=== PATIENT | female | born 1930 | race Caucasian/White ===

== ENCOUNTER → 2016-12-05 | Outpatient (CLI) | payer MEDICARE ==
--- NOTE | 2016-12-05 21:34 | US ---
EXAMINATION TYPE: US carotid duplex BILAT DATE OF EXAM: 12/05/2016 COMPARISON: NONE CLINICAL HISTORY: I34.0 Nonrheumatic mitral regurgitation. Stenosis per order. EXAM MEASUREMENTS: RIGHT: Peak Systolic Velocity (PSV) cm/sec ----- Right CCA: 81.9 ----- Right ICA: 86.5 ----- Right ECA: 117.7 ICA/CCA ratio: 1.1 RIGHT: End Diastole cm/sec ----- Right CCA: 11.1 ----- Right ICA: 16.8 ----- Right ECA: 0.0 LEFT: Peak Systolic Velocity (PSV) cm/sec ----- Left CCA: 81.1 ----- Left ICA: 75.6 ----- Left ECA: 104.2 ICA/CCA ratio: 0.9 LEFT: End Diastole cm/sec ----- Left CCA: 13.4 ----- Left ICA: 14.3 ----- Left ECA: 0.0 VERTEBRALS (direction of flow): Right Vertebral: Antegrade Left Vertebral: Antegrade Bilateral intimal thickening, minimal plaque bilateral bulb, no elevated velocities, no significant s tenosis. Grayscale images show focal moderate shadowing eccentric hyperechoic plaque at right carotid bulb. Th ere is minimal also moderate to severe peripheral plaque at left carotid bulb seen on image 36. Veloc ity measurements and ratios in visualized portion of both internal carotid arteries is within normal limits. IMPRESSION: Fairly moderate atherosclerotic change bilaterally without hemodynamically significant s tenosis clearly seen in either internal carotid artery . Criteria for Assigning % of Stenosis / Diameter reduction (Estimation based on the indirect measurements of the internal carotid artery velocities (ICA PSV). 1. Normal (no stenosis)=ICA PSV < 125 cm/s: ratio < 2.0: ICA EDV<40 cm/s. 2. Less than 50% stenosis=ICA PSV < 125 cm/s: ratio < 2.0: ICA EDV<40 cm/s. 3. 50 to 69% stenosis=ICA PSV of 125 to 230 cm/s: ration 2.0 ? 4.0: ICA EDV 40-100 cm/s. 4. Greater than 70% stenosis to near occlusion= ICA PSV > 230 cm/s: ratio > 4.0: ICA EDV > 100 cm/s. 5. Near occlusion= ICA PSV velocities may be low or undetectable: variable ratio and ICA EDV. 6. Total occlusion=unable to detect flow.
--- NOTE | 2016-12-06 10:38 | ECHOF ---
Referral Reason:I34.0 Nonrheumatic mitral regurgitation MEASUREMENTS -------- HEIGHT: 160.0 cm WEIGHT: 48.5 kg BP: 181/74 RVIDd: 1.4 cm (< 3.3) IVSd: 0.9 cm (0.6 - 1.1) LVIDd: 3.4 cm (3.9 - 5.3) LVPWd: 0.9 cm (0.6 - 1.1) IVSs: 1.2 cm LVIDs: 1.9 cm LVPWs: 1.2 cm LAESV Index (A-L): 10.33 ml/m Ao Diam: 3.1 cm (2.0 - 3.7) AV Cusp: 1.1 cm (1.5 - 2.6) LA Diam: 2.6 cm (2.7 - 3.8) MV EXCURSION: 12.755 mm (> 18.000) MV EF SLOPE: 62 mm/s (70 - 150) EPSS: 1.2 cm MV E Juan Luis: 1.00 m/s MV DecT: 312 ms MV A Juan Luis: 1.16 m/s MV E/A Ratio: 0.87 RAP: 5.00 mmHg RVSP: 32.03 mmHg FINDINGS -------- Sinus rhythm. This was a technically adequate study. The left ventricular size is normal. Left ventricular wall thickness is normal. Overall left ventricular systolic function is normal with, an EF between 55 - 60 %. The right ventricle is normal in size and function. Normal LA size by volume 22+/-6 ml/m2. The right atrium is normal in size. There is mild aortic valve sclerosis. There is mild aortic regurgitation. The mitral valve leaflets are mild to moderately thickened. Mild mitral annular calcification present. Mild mitral regurgitation is present. Trace tricuspid regurgitation present. There is no evidence of pulmonary hypertension. The right ventricular systolic pressure, as measured by Doppler, is 32.03mmHg. The pulmonic valve was not well visualized. There is no pulmonic regurgitation present. The aortic root size is normal. Normal inferior vena cava with normal inspiratory collapse consistent with estimated right atrial pressure of 5 mmHg. There is a small pericardial effusion is located near the right ventricle. Moderate Pleural Effusion. CONCLUSIONS -------- 1. Sinus rhythm. 2. Trace tricuspid regurgitation present. 3. There is no evidence of pulmonary hypertension. 4. The pulmonic valve was not well visualized. 5. There is no pulmonic regurgitation present. 6. The aortic root size is normal. 7. There is a small pericardial effusion is located near the right ventricle. 8. Moderate Pleural Effusion. 9. This was a technically adequate study. 10. Left ventricular wall thickness is normal. 11. Overall left ventricular systolic function is normal with, an EF between 55 - 60 %. 12. Normal LA size by volume 22+/-6 ml/m2. 13. There is mild aortic valve sclerosis. 14. There is mild aortic regurgitation. 15. The mitral valve leaflets are mild to moderately thickened. 16. Mild mitral regurgitation is present. SHINGLE CUTTER: Hayley Villegas RDCS
== END | disposition home or self-care (01) ==
LOC: RADUSMAIN 15:36
PROVIDERS: ATTEND Internal Medicine
DX: I08.3 Combined rheumatic disorders of mitral, aortic and tricuspid valves (principal); I65.23 Occlusion and stenosis of bilateral carotid arteries; I31.3 Pericardial effusion (noninflammatory)
CPT/HCPCS: 93306; 93880

== ENCOUNTER → 2017-01-02 | Outpatient (CLI) | payer MEDICARE ==
[2017-01-02 15:15] LABS: Blood Urea Nitrogen 16 mg/dL (7-17); Non-African American GFR(MDRD) >60 (>60 ml/min/1.73 sqM)
--- NOTE | 2017-01-02 16:01 | CT ---
EXAMINATION TYPE: CT chest w con DATE OF EXAM: 01/02/2017 COMPARISON: NONE HISTORY: Patient has no complaints at time of service. Abnormal study showing pleural effusion. CT DLP: 147.5 mGycm. Automated Exposure Control for Dose Reduction was Utilized. TECHNIQUE: CT scan of the thorax is performed following with IV Contrast, patient injected with 100 mL of Omnipaque 300. FINDINGS: LUNGS: Pleural parenchymal scarring present of the lung bases. A subsolid spiculated pulmonary nodule measuring 7 mm is seen within the right upper lobe on series 4 image 26 as well as a patchy area of groundglass opacity also measuring 7 mm in the left upper lobe on series 4 image 20. Scattered calcif ied benign granulomas are seen of the right. There is no pleural effusion or pneumothorax seen. The tracheobronchial tree is patent. MEDIASTINUM: There are no greater than 1 cm hilar or mediastinal lymph nodes. Prominent right hilar c onglomeration of lymph nodes measures 0.9 x 0.9 cm. No pericardial effusion is seen. OTHER: There is a singular large arterially enhancing lesion within the right hepatic lobe and segmen t 8 measuring 2.0 x 1.8 cm. Subcentimeter thyroid nodules seen on the left. Note is made of generaliz ed osseous demineralization. Prominent patella is seen in the right upper pole on series 3 image 81. IMPRESSION: 1. No pleural or pericardial effusion. 2. Arterial enhancing hepatic lesion. Although this could represent a flash filling hemangioma, this is atypical for the size of the lesion and other arterial enhancing lesion such as hepatocellular car cinoma are considered. Further characterization with dynamic enhanced CT abdomen or MR abdomen are re commended. 3. Subsolid and groundglass pulmonary nodules for which follow-up CT is recommended in 3-6 months. 4. No evidence of mediastinal adenopathy.
== END | disposition home or self-care (01) ==
LOC: RADCTMAIN 14:31
PROVIDERS: ATTEND Internal Medicine
DX: R91.1 Solitary pulmonary nodule (principal)
CPT/HCPCS: 71260; 82565; 84520

== ENCOUNTER → 2017-01-20 | Outpatient (CLI) | payer MEDICARE ==
--- NOTE | 2017-01-20 09:18 | US ---
EXAMINATION TYPE: US abdomen complete DATE OF EXAM: 01/20/2017 COMPARISON: CT chest dated 01/02/2017. CLINICAL HISTORY: R16.[address] EXAM MEASUREMENTS: Liver Length: 12.5 cm Gallbladder Wall: 0.2 cm CBD: 0.3 cm Spleen: 9.5 cm Right Kidney: 10.7 x 3.6 x 5.7 cm Left Kidney: 11.7 cx 5.0 x 5.3 cm Pancreas: visualized portions wnl Liver: vague hyperechoic area near the hepatic dome measures 1.8 x 2.5 x 1.9 cm with internal vascul arity Gallbladder: No stones seen Evidence for sonographic Liu's sign: No CBD: wnl Spleen: wnl Right Kidney: No hydronephrosis or masses seen Left Kidney: No hydronephrosis or masses seen Upper IVC: wnl Abd Aorta: calcified The intrahepatic portion of the IVC and proximal abdominal aorta are within normal limits. There is no evidence of cholelithiasis. Common bile duct is unremarkable. The visualized portions of the spain creas are homogenous. The spleen is unremarkable. Kidneys are symmetric and free of hydronephrosis. No renal lesions are seen. IMPRESSION: Indeterminate, ill-defined hyperechoic hepatic lesion, which demonstrated arterial enhanc ement on the prior CT. Again this is not typical for hemangioma and further characterization with [facility] enhanced CT abdomen or MR is recommended.
== END | disposition home or self-care (01) ==
LOC: RADUSWWP 07:28
PROVIDERS: ATTEND Internal Medicine
DX: K76.9 Liver disease, unspecified (principal)
CPT/HCPCS: 76700

== ENCOUNTER → 2017-02-01 | Outpatient (CLI) | payer MEDICARE ==
[2017-02-01 17:44] LABS: Blood Urea Nitrogen 16 mg/dL (7-17); Non-African American GFR(MDRD) >60 (>60 ml/min/1.73 sqM)
--- NOTE | 2017-02-02 06:04 | CT ---
EXAMINATION TYPE: CT abdomen wo/w con DATE OF EXAM: 02/01/2017 HISTORY: Abnormal CT and US. CT DLP: 363.70mGycm Automated Exposure Control for Dose Reduction was Utilized. CONTRAST: CT scan of the abdomen and pelvis is performed with oral and without and with IV Contrast, patient in jected with 100 mL of Omnipaque 300. COMPARISON: CT chest January 02, 2017. Complete abdominal ultrasound January 20, 2017.. FINDINGS: Exam is noted suboptimal as this is not performed under dedicated liver protocol. Patient h as very little intra-abdominal fat making evaluation suboptimal. LUNG BASES: There is redemonstration of bibasilar linear scarring and/or atelectasis most prominent c entrally in the left lung base. There is subpleural 7 x 6 mm nodule anterolateral right lung base yi t is stable that requires follow-up. There is coronary artery stent suspected in the RCA distribution . LIVER/GB: Corresponding to chest CT and ultrasound findings. There is 1.6 cm oval hypodense lesion in periphery right hepatic dome on series 3 image 14 that shows fairly homogeneous enhancement on postc ontrast images which becomes isodense to hepatic veins on delayed phased images, a flash filling cathy ngioma is suspected. A few punctate calcifications are noted centrally near steven hepatis. Gallbladde r is not visualized and presumed surgically absent. No biliary dilatation is noted. PANCREAS: No significant abnormality is seen. SPLEEN: No significant abnormality is seen. ADRENALS: No significant abnormality is seen. KIDNEYS: No renal stones are evident bilaterally. There is symmetric cortical medullary uptake and ex cretion from both kidneys without evidence of hydronephrosis bilaterally. There is unusual superior c ourse to right collecting system seen best coronal image 29. BOWEL: Evaluation bowel is suboptimal as patient has very little intra-abdominal fat. Oral contrast d oes not reach colonic level. There is slight prominence of contrast filled small bowel loops. Fecal m aterial is somewhat prominent throughout visualized colon. LYMPH NODES: No greater than 1cm abdominal lymph nodes are appreciated. OSSEOUS STRUCTURES: Spine is straightened on sagittal images. There is mild disc space narrowing with vacuum disc phenomenon at lumbosacral junction. OTHER: No significant additional abnormality is seen. IMPRESSION: 1. Suboptimal study as detailed above. The 1.6 cm right hepatic dome liver lesion favors benign heman gioma accounting for characteristics today and on ultrasound with hyperechoic appearance. Consider li daniel protocol contrast enhanced CT in 6-12 months time to ensure benign process. 2. Overall nonobstructive bowel gas pattern. Mild to moderate diffuse colonic fecal stasis is felt pr esent. 3. A 7 mm right basilar nodule is noted. Additional similar size nodules are seen on recent chest CT. Follow-up CT in 3-6 months time is advised as was recommended on chest CT report.
== END | disposition home or self-care (01) ==
LOC: RADCTMAIN 17:04
PROVIDERS: ATTEND Internal Medicine
DX: K76.9 Liver disease, unspecified (principal)
CPT/HCPCS: 82565; 84520; 74170; 36415; Q9967

== ENCOUNTER → 2017-06-16 | Outpatient (CLI) | payer MEDICARE ==
--- NOTE | 2017-06-19 11:43 | MM ---
Reason for exam: screening (asymptomatic). Last mammogram was performed 1 year and 1 month ago. History: Patient is postmenopausal and has history of other cancer at age 65. Physical Findings: A clinical breast exam by your physician is recommended on an annual basis and results should be correlated with mammographic findings. MG 3D Screening Mammo W/Cad Bilateral CC and MLO view(s) were taken. Prior study comparison: May 09, 2016, bilateral MG 3d screening mammo w/cad. May 06, 2015, bilateral MG 3d screening mammo w/cad. The breast tissue is heterogeneously dense. This may lower the sensitivity of mammography. Stable benign calcifications. There is no discrete abnormality. No significant changes when compared with prior studies. ASSESSMENT: Benign, BI-RAD 2 RECOMMENDATION: Routine screening mammogram of both breasts in 1 year.
== END | disposition home or self-care (01) ==
LOC: RADMAMWWP 14:27
PROVIDERS: ATTEND Internal Medicine
DX: Z12.31 Encounter for screening mammogram for malignant neoplasm of breast (principal)
CPT/HCPCS: 77063; 77067

== ENCOUNTER → 2018-07-18 | Outpatient (CLI) | payer MEDICARE ==
--- NOTE | 2018-07-20 10:33 | MM ---
Reason for exam: screening (asymptomatic). Last mammogram was performed 1 year and 1 month ago. History: Patient is postmenopausal and has history of other cancer at age 65. Physical Findings: A clinical breast exam by your physician is recommended on an annual basis and results should be correlated with mammographic findings. MG 3D Screening Mammo W/Cad Bilateral CC and MLO view(s) were taken. Prior study comparison: June 16, 2017, bilateral MG 3d screening mammo w/cad. May 09, 2016, bilateral MG 3d screening mammo w/cad. The breast tissue is extremely dense which could obscure a lesion on mammography. Bilateral vascular calcifications. No significant changes when compared with prior studies. ASSESSMENT: Negative, BI-RAD 1 RECOMMENDATION: Routine screening mammogram of both breasts in 1 year. Patient should continue monthly self breast exams. A negative report should not preclude additional follow up of suspicious palpable abnormalities.
== END ==
LOC: RADMAMWWP 14:38
PROVIDERS: ATTEND Internal Medicine
DX: Z12.31 Encounter for screening mammogram for malignant neoplasm of breast (principal)
CPT/HCPCS: 77063; 77067

== ENCOUNTER → 2018-08-27 | Outpatient (CLI) | payer MEDICARE ==
--- NOTE | 2018-08-28 14:10 | BD ---
EXAMINATION TYPE: Axial Bone Density DATE OF EXAM: 08/27/2018 COMPARISON: NONE CLINICAL HISTORY: Postmenopausal female Height: 63.5 Weight: 10.1.3 FRAX RISK QUESTIONS: Alcohol (3 or more units per day): no Family History (Parent hip fracture): no Glucocorticoids (More than 3mos): no (Ex: prednisone, prednisolone, methylprednisolone, dexamethasone, and hydrocortisone). History of Fracture in Adulthood: yes Secondary Osteoporosis: 1. Type 1 Diabetes: no 2. Hyperthyroidism: no 3. Menopause before 45: no 4. Malnutrition: no 5. Chronic liver disease: no Rheumatoid Arthritis: no Current Tobacco Use: no RISK FACTORS HISTORY OF: Family History of Osteoporosis: no Active: yes Diet low in dairy products/other sources of calcium: yes Postmenopausal woman: age 57 Lost more than 2 inches in height since high school: no MEDICATIONS: Additional History: EXAM MEASUREMENTS: Bone mineral densitometry was performed using the [employer] System. Bone mineral density as measured about the Lumbar spine is: ----- L1-L4(G/cm2): 0.903 T Score Values are as follows: ----- L2: -2.8 ----- L3: -2.0 ----- L4: -1.9 ----- L1-L4: -2.3 Bone mineral density : baseline Bone mineral density about the R hip (g/cm2): 0.812 Bone mineral density about the L hip (g/cm2): 0.763 T Score values are as follows: -----R Neck: -1.6 -----L Neck: -2.0 -----R Total: -2.1 -----L Total: -2.2 Bone mineral density : baseline IMPRESSION: Osteopenia (T Score between -2.5 and -1). There is slightly increased risk of fracture and the patient may be considered for treatment. Re-Screen 2-5 years. NOTE: T-SCORE=SD OF THE YOUNG ADULT MEAN.
== END | disposition home or self-care (01) ==
LOC: RADBDWWP 07:54
PROVIDERS: ATTEND Internal Medicine
DX: M85.80 Other specified disorders of bone density and structure, unspecified site (principal)
CPT/HCPCS: 77080

== ENCOUNTER → 2019-08-08 | Outpatient (CLI) | payer MEDICARE ==
--- NOTE | 2019-08-08 11:30 | MM ---
Reason for exam: screening (asymptomatic). Last mammogram was performed 1 year and 1 month ago. History: Patient is postmenopausal and has history of other cancer at age 65. Physical Findings: A clinical breast exam by your physician is recommended on an annual basis and results should be correlated with mammographic findings. MG 3D Screening Mammo W/Cad Bilateral CC and MLO view(s) were taken. Prior study comparison: July 18, 2018, bilateral MG 3d screening mammo w/cad. June 16, 2017, bilateral MG 3d screening mammo w/cad. The breast tissue is extremely dense which could obscure a lesion on mammography. Benign appearing bilateral calcifications. No suspicious abnormality. No significant changes when compared with prior studies. ASSESSMENT: Benign, BI-RAD 2 RECOMMENDATION: Routine screening mammogram of both breasts in 1 year.
== END | disposition home or self-care (01) ==
LOC: RADMAMWWP 07:53
PROVIDERS: ATTEND Internal Medicine
DX: Z12.31 Encounter for screening mammogram for malignant neoplasm of breast (principal)
CPT/HCPCS: 77063; 77067

== ENCOUNTER → 2019-11-06 | Outpatient (CLI) | payer MEDICARE ==
[2019-11-06 13:15] LABS: Basophils % (A) 1 %; Eosinophils # (A) 0.1 k/uL (0-0.7); Eosinophils % (A) 2 %; HCT 40.8 % (34.0-46.0); HGB 13.2 gm/dL (11.4-16.0); Lymphocytes % (A) 26 %; MCHC 32.4 g/dL (31.0-37.0); MCV 89.4 fL (80.0-100.0); Mean Platelet Volume 7.3; Monocytes # (A) 0.3 k/uL (0-1.0); Monocytes % (A) 7 %; Neutrophils # (A) 2.4 k/uL (1.3-7.7); Neutrophils % (A) 62 %; Platelet Count 228 k/uL (150-450); RBC 4.56 m/uL (3.80-5.40); RDW 13.3 % (11.5-15.5); WBC 3.8 k/uL (3.8-10.6)
[2019-11-06 18:53] LABS: African American GFR (CKD) 101.6 (60.0-200.0); Albumin 3.8 g/dL (3.80-4.90); Albumin/Globulin Ratio 1.65 (1.60-3.17); Anion Gap 6.2 mmol/L (4.00-12.00); Calcium 9.4 mg/dL (8.7-10.3); Carbon Dioxide 30.8 mmol/L (21.6-31.8); Chol/HDL Ratio 2.06; Globulin 2.3 g/dL (1.6-3.3); Non-African American GFR(CKD) 87.6 (60.0-200.0); Potassium 4.7 mmol/L (3.5-5.5); Total Bilirubin 0.5 mg/dL (0.3-1.2); Total Protein 6.1 g/dL (6.2-8.2)
[2019-11-06 20:23] LABS: Hemoglobin A1C 6.5 % (4.0-6.0)
== END | disposition home or self-care (01) ==
LOC: LABWHC1 11:09
PROVIDERS: ATTEND Internal Medicine
DX: E78.2 Mixed hyperlipidemia (principal); E11.9 Type 2 diabetes mellitus without complications; H40.89 Other specified glaucoma
CPT/HCPCS: 36415; 80053; 80061; 83036; 85025

== ENCOUNTER → 2020-10-09 | Outpatient (CLI) | payer MEDICARE ==
--- NOTE | 2020-10-12 10:47 | MM ---
Reason for exam: screening (asymptomatic). Last mammogram was performed 1 year and 2 months ago. History: Patient is postmenopausal and has history of other cancer at age 65. Physical Findings: A clinical breast exam by your physician is recommended on an annual basis and results should be correlated with mammographic findings. MG 3D Screening Mammo W/Cad Bilateral CC and MLO view(s) were taken. Prior study comparison: August 08, 2019, bilateral MG 3d screening mammo w/cad. July 18, 2018, bilateral MG 3d screening mammo w/cad. The breast tissue is extremely dense which could obscure a lesion on mammography. There are benign appearing vascular, dystrophic calcifications bilaterally. ASSESSMENT: Benign, BI-RAD 2 RECOMMENDATION: Routine screening mammogram of both breasts in 1 year.
== END | disposition home or self-care (01) ==
LOC: RADMAMWWP 07:53
PROVIDERS: ATTEND Internal Medicine
DX: Z12.31 Encounter for screening mammogram for malignant neoplasm of breast (principal); Z78.0 Asymptomatic menopausal state
CPT/HCPCS: 77063; 77067

== ENCOUNTER → 2021-02-11 | Outpatient (CLI) | payer MEDICARE ==
--- NOTE | 2021-02-12 09:31 | ECHOF ---
Referral Reason:I35.1 Nonrheumatic aortic (valve) insufficiency MEASUREMENTS -------- HEIGHT: 160.0 cm WEIGHT: 45.4 kg BP: 122/70 RVIDd: 2.7 cm (< 3.3) IVSd: 0.8 cm (0.6 - 1.1) LVIDd: 3.4 cm (3.9 - 5.3) LVPWd: 0.8 cm (0.6 - 1.1) IVSs: 1.2 cm LVIDs: 1.8 cm LVPWs: 1.3 cm LA Diam: 2.3 cm (2.7 - 3.8) LAESV Index (A-L): 19.15 ml/m Ao Diam: 2.7 cm (2.0 - 3.7) AV Cusp: 1.8 cm (1.5 - 2.6) MV EXCURSION: 13.666 mm (> 18.000) MV EF SLOPE: 111 mm/s (70 - 150) EPSS: 0.4 cm MV E Juan Luis: 1.07 m/s MV DecT: 346 ms MV A Juan Luis: 1.12 m/s MV E/A Ratio: 0.96 AR PHT: 338 ms RAP: 5.00 mmHg RVSP: 28.65 mmHg FINDINGS -------- Sinus rhythm. This was a technically good study. The left ventricular size is normal. Left ventricular wall thickness is normal. Overall left vent ricular systolic function is normal with, an EF between 60 - 65 %. The right ventricle is normal in size. Normal LA size by volume 22+/-6 ml/m2. The right atrium is normal in size. Interatrial and interventricular septum intact. There is mild aortic valve sclerosis. There is uyda-na-cpdeearb aortic regurgitation. The mitral valve leaflets are mildly thickened. Mild mitral annular calcification present. Mild-t o-moderate mitral regurgitation is present. Moderate tricuspid regurgitation present. Right ventricular systolic pressure is normal at < 35 mmH g. Trace/mild (physiologic) pulmonic regurgitation. The aortic root size is normal. Normal inferior vena cava with normal inspiratory collapse consistent with estimated right atrial pre ssure of 5 mmHg. There is no pericardial effusion. CONCLUSIONS -------- 1. The left ventricular size is normal. 2. Left ventricular wall thickness is normal. 3. Overall left ventricular systolic function is normal with, an EF between 60 - 65 %. 4. There is mild aortic valve sclerosis. 5. There is fjgv-mj-slbxqloi aortic regurgitation. 6. The mitral valve leaflets are mildly thickened. 7. Mild mitral annular calcification present. 8. Ophx-gc-kxgibmxw mitral regurgitation is present. 9. Moderate tricuspid regurgitation present. 10. Trace/mild (physiologic) pulmonic regurgitation. 11. There is no pericardial effusion. AGRICULTURAL CHEMIST: Hayley Villegas RDCS
== END | disposition home or self-care (01) ==
LOC: RADECHMAIN 14:35
PROVIDERS: ATTEND Internal Medicine
DX: I35.8 Other nonrheumatic aortic valve disorders (principal); I70.90 Unspecified atherosclerosis; I37.1 Nonrheumatic pulmonary valve insufficiency; I35.1 Nonrheumatic aortic (valve) insufficiency
CPT/HCPCS: 93306

== ENCOUNTER → 2021-11-05 | Outpatient (CLI) | payer MEDICARE ==
--- NOTE | 2021-11-05 16:00 | BD ---
EXAMINATION TYPE: Axial Bone Density DATE OF EXAM: 11/05/2021 COMPARISON: 08/27/2018 CLINICAL HISTORY: 89 years year old Female. 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 Bone mineral density as measured about the Lumbar spine is: ----- L1-L4(G/cm2): 0.890 T Score Values are as follows: ----- L1: -3.3 ----- L2: -2.9 ----- L3: -1.6 ----- L4: -2.3 ----- L1-L4: -2.6 Bone mineral density has: Decreased -0.6% since study of: 08/27/2018 Bone mineral density about the R hip (g/cm2): 0.730 Bone mineral density about the L hip (g/cm2): 0.667 T Score values are as follows: -----R Neck: -2.7 -----L Neck: -2.2 -----R Total: -2.5 -----L Total: -1.9 Bone mineral density has: Decreased -0.5% since study of: 08/27/2018 FRAX%s: The graph provided illustrates a 6.2 chance for a major osteoporotic fx and a 2.2 chance for the hips probability for fx in 10 years time. IMPRESSION: Osteoporosis (T Score less than -2.5). There is increased fracture risk and therapy is usually indicated based on age. Re-Screen 1-2 years. NOTE: T-SCORE=SD OF THE YOUNG ADULT MEAN.
== END | disposition home or self-care (01) ==
LOC: RADMAMWWP 13:19
PROVIDERS: ATTEND Internal Medicine
DX: Z12.31 Encounter for screening mammogram for malignant neoplasm of breast (principal); M85.851 Other specified disorders of bone density and structure, right thigh
CPT/HCPCS: 77063; 77067; 77080

== ENCOUNTER → 2021-12-07 | Outpatient (CLI) | payer MEDICARE ==
--- NOTE | 2021-12-07 17:44 | CT ---
EXAMINATION TYPE: CT ankle RT wo con CT DLP: 275.50 mGycm, Automated exposure control for dose reduction was used. 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 Additional coronal and sagittal reformatted images and soft tissue and bone window were obtained for review. 3-D reconstruction was created on a separate workstation. FINDINGS: There is a defect within the talar dome and the medial aspect. Subchondral cystic changes a re also present. There is diffuse osseous demineralization present. There is no evidence of acute fra cture. There is small calcific densities posterior to the ankle joint which may represent free bodies . Scattered degenerative changes are seen throughout the joints of the foot. There is atherosclerosis of the arterial vasculature. There is soft tissue swelling throughout the le g. Scattered mild muscle atrophy is also present. IMPRESSION: 1. Osteochondral defect involving the medial talar dome. 2. Diffuse osseous demineralization.
== END | disposition home or self-care (01) ==
LOC: RADCTMAIN 16:51
PROVIDERS: ATTEND Podiatrist
DX: M93.271 Osteochondritis dissecans, right ankle and joints of right foot (principal)

== ENCOUNTER → 2022-09-01 | Outpatient (CLI) | payer MEDICARE ==
--- NOTE | 2022-09-01 14:58 | US ---
EXAMINATION TYPE: US carotid duplex BILAT DATE OF EXAM: 09/01/2022 COMPARISON: 12/05/2016 CLINICAL HISTORY: 89-year-old female I65.23 CAROTID STENOSIS. No HTN or history of stroke TECHNIQUE: Carotid duplex ultrasound examination. Indirect Doppler criteria was utilized. FINDINGS: EXAM MEASUREMENTS: RIGHT: Peak Systolic Velocity (PSV) cm/sec ----- Right CCA: 94.8 ----- Right ICA: 90.1 ----- Right ECA: 169.0 ICA/CCA ratio: 1.0 RIGHT: End Diastole cm/sec ----- Right CCA: 0.0 ----- Right ICA: 10.9 ----- Right ECA: 0.0 LEFT: Peak Systolic Velocity (PSV) cm/sec ----- Left CCA: 87.2 ----- Left ICA: 83.5 ----- Left ECA: 145.0 ICA/CCA ratio: 1.0 LEFT: End Diastole cm/sec ----- Left CCA: 0.0 ----- Left ICA: 6.6 ----- Left ECA: 0.0 VERTEBRALS (direction of flow): Right Vertebral: Antegrade Left Vertebral: Antegrade Rhythm: Normal CONTROL OPERATOR FLOW COAT NOTES: Bilateral wall thickening. Bilateral ECA velocities are mildly elevated. Plaque seen in bilateral bulbs. IMPRESSION: No hemodynamically significant internal carotid artery stenosis on either side. Criteria for Assigning % of Stenosis / Diameter reduction (Estimation based on the indirect measurements of the internal carotid artery velocities (ICA PSV). 1. Normal (no stenosis)=ICA PSV < 125 cm/s: ratio < 2.0: ICA EDV<40 cm/s. 2. Less than 50% stenosis=ICA PSV < 125 cm/s: ratio < 2.0: ICA EDV<40 cm/s. 3. 50 to 69% stenosis=ICA PSV of 125 to 230 cm/s: ration 2.0 ? 4.0: ICA EDV 40-100 cm/s. 4. Greater than 70% stenosis to near occlusion= ICA PSV > 230 cm/s: ratio > 4.0: ICA EDV > 100 cm/s. 5. Near occlusion= ICA PSV velocities may be low or undetectable: variable ratio and ICA EDV. 6. Total occlusion=unable to detect flow.
--- NOTE | 2022-09-01 19:29 | US ---
EXAMINATION TYPE: US arterial LE single level DATE OF EXAM: 09/01/2022 1:50 PM CLINICAL HISTORY: I73.9 PAD. Patient states feet feels cold History of: Smoker: No Hypertension: No Diabetic: Yes TIA/CVA: No Previous Vascular Surgery: No CAD: No MT: No Vascular Ulcers: No Claudication: No Gangrene: No Doppler Waveforms: Right: Biphasic Left: Biphasic Pulse Volume Recording: Pressure Gradients: Right Brachial Pressure: 93 Left Brachial Pressure: 99 Ankle-Brachial Indices: Right: 1.56 Left: 1.4 Toe Brachial Indices: Right: 0.8 Left: 0.9 IMPRESSION: Elevated right sided LEONEL consistent with noncompressible possibly diffusely calcified ve ssel. Follow-up advised.
== END | disposition home or self-care (01) ==
LOC: RADUSWWP 12:57
PROVIDERS: ATTEND Internal Medicine
DX: I73.9 Peripheral vascular disease, unspecified (principal); I65.23 Occlusion and stenosis of bilateral carotid arteries; I35.1 Nonrheumatic aortic (valve) insufficiency; E11.51 Type 2 diabetes mellitus with diabetic peripheral angiopathy without gangrene
CPT/HCPCS: 93880; 93922

== ENCOUNTER → 2022-09-08 | Outpatient (CLI) | payer MEDICARE ==
--- NOTE | 2022-09-08 16:03 | CA ---
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 67 - 155 / 56 - 104 cm??? LV Systolic Volume MOD BP 21.7 cm??? 22 - 58 / 19 - 49 cm??? LV Ejection Fraction MOD BP 60.2 % >= 55 % LV Diastolic Volume MOD 4C 36.6 cm??? LV Systolic Volume MOD 4C 20.2 cm??? LV Ejection Fraction MOD 4C 45.0 % LV Diastolic Length 4C 4.8 cm LV Systolic Length 4C 5.1 cm LV Diastolic Volume MOD 2C 60.5 cm??? LV Systolic Volume MOD 2C 23.7 cm??? LV Ejection Fraction MOD 2C 60.8 % LV Diastolic Length 2C 6.4 cm LV Systolic Length 2C 5.3 cm LA Volume 19.6 cm??? 18 - 58 / 22 - 52 cm??? M-MODE Aortic Root Diameter MM 3.0 cm MV E Point Septal Separation 0.6 cm AV Cusp Separation MM 2.1 cm DOPPLER AV Peak Velocity 132.9 cm/s AV Peak Gradient 7.1 mmHg AI Peak Velocity 332.8 cm/s AI Peak Gradient 44.3 mmHg AI Pressure Half Time 656.3 ms MV Area PHT 2.8 cm??? Mitral E Point Velocity 75.3 cm/s Mitral A Point Velocity 103.1 cm/s Mitral E to A Ratio 0.7 MV Deceleration Time 269.0 ms MV E' Velocity 5.9 cm/s Mitral E to MV E' Ratio 12.9 TR Peak Velocity 225.1 cm/s TR Peak Gradient 20.3 mmHg Right Ventricular Systolic Press 24.6 mmHg FINDINGS Left Ventricle Left ventricular ejection fraction is estimated at 55-60 %. Small left ventricular cavity. Left ventricular wall thickness normal. Right Ventricle Normal right ventricular size and function. Right ventricular systolic pressure within normal limits. Right Atrium Normal right atrial size. Left Atrium Normal left atrial size. Mitral Valve Mitral valve thickened. Mild mitral annular calcification. No evidence for mitral valve prolapse. No mitral stenosis. Aortic Valve Thickened aortic valve without stenosis. Mild aortic regurgitation. Aortic valve sclerosis. Tricuspid Valve Structurally normal tricuspid valve. Mild tricuspid regurgitation. Pulmonic Valve Pulmonic valve not well visualized. Pericardium Normal pericardium. No pericardial effusion. Aorta Normal size aortic root and proximal ascending aorta. CONCLUSIONS Preserved LV systolic function Thickened mitral and aortic valve leaflets No stenosis Previewed by: Dr. Jacobo Gleason MD (Electronically Signed) Final Date: 08 September 2022 16:02
== END | disposition home or self-care (01) ==
LOC: RADECHMAIN 08:37
PROVIDERS: ATTEND Internal Medicine
DX: I08.0 Rheumatic disorders of both mitral and aortic valves (principal)
CPT/HCPCS: 93306